=== PATIENT | female | born 1980 | race African-American/Black ===

== ENCOUNTER 2017-03-10 12:00 | Observation (INO) ==
[2017-03-10] MEDS ORDERED: METOPROLOL TARTRATE 5 MG/5 ML VIAL IV STA (12:38)
[2017-03-10 12:56] LABS: Basophils # 0.1 10*3/uL (0.0-0.2); Basophils % 1.1 % (0.0-0.8); Eosinophils # 0.1 10*3/uL (0.0-0.87); Eosinophils % 0.9 % (0.00-10.9); Hematocrit 39.5 VOL% (35.7-47.0); Hemoglobin 13.7 GM/DL (12.0-16.0); Immature Granulocytes % 0.4 %; Immature Granulocytes Absolute 0.03 #; Lymphocytes % 40.7 % (21.3-54.2); Mean Corpuscular HGB Conc 34.7 GM/DL (32-36); Mean Corpuscular Hemoglobin 28 PG (27-34); Mean Corpuscular Volume 79.6 FL (87-102); Mean Platelet Volume 10.5 FL (9.6-12.0); Monocytes # 0.6 10*3/uL (0.11-0.8); Neutrophils # 3.6 10*3/uL (1.4-7.4); Neutrophils % 48.9 % (38.7-73.9); Platelet Count 360 T/CUMM (130-400); Red Blood Count 4.96 MC/CUMM (3.8-5.5); Red Cell Distribution Width 13.4 % (9.3-17.3); White Blood Count 7.4 T/CUMM (4-12)
--- NOTE | 2017-03-10 13:03 | XRay Report ---
Exam: XR chest 1V portable Date: 03/10/2017 12:37 PM Indication: Atrial fibrillation Comparison: None Technical: AP Findings: External cardiac leads are present. The heart, lungs, mediastinum bony structures are intact . Oxygen tubing superimposes exam. Impression: 1. No acute cardiopulmonary pathology radiographically PROCEDURE INTERPRETED AT [facility] DEPARTMENT OF RADIOLOGY Final Report Signed by: Dr. Feliz Su
--- NOTE | 2017-03-10 13:03 | Emergency Department Note ---
Rosalio Najera Manpreet, am scribing for, and in the presence of, Nava Page DO 12: 41. ICamilo Debra, DO, personally performed the services described in this documentation, ascribed by Albert Santamaria in my presence, and it is both accurate and complete . Arrival - Arrival Chief Complaint: Arrhythmia/Palpitations Stated Complaint: chest palpations, sob ED Nursing Triage Note: pt ambulatory to triage with c/o having palpitations/ fluttering in chest and sob onset yesterday pt denies any cp.. states fluttering and sob comes and goes. denies any n/v or dizziness. Mode of Arrival: Ambulatory Limitations: No Limitations Source: Patient Time Seen by Provider: 03/10/17 12:34 - History of Present Illness HPI Narrative: Pt is a 36 y/o female, with PMHx of HTN, who presents to the ED after having chest palpations and SOB that began yesterday but got worse today. Pt states the fluttering and SOB are intermittent. Pt denies any N/V/D, dizziness, fever, chills, or CP, but c/o nausea. Pt has had similar episodes of palpations with SOB but has not seen a survey director or her PCP. Dr. Groves is the pt's PCP. Pt states she is complaint with her HTN medications. No other pains/complaints reported to the ED. Onset (ago): day(s) (yesterday) Consistency: intermittent Severity: mild, moderate Allergies/Adverse Reactions: Allergies Allergy/AdvReac Type Severity Reaction Status Date / Time No Known Allergies Allergy Unverified 03/10/17 12:14 Review of System - Review of System 12 point system: reviewed and no additional remarkable complaints except as stated - Review of System Constitutional: Absent: chills, diaphoresis, fever Head/Ears/Nose/Throat: Absent: sore throat Respiratory: Present: respiratory distress. Absent: cough, wheezing Cardiovascular: Present: palpitations. Absent: chest pain, dyspnea on exertion Gastrointestinal: Present: nausea. Absent: abdominal pain, vomiting, diarrhea Musculoskeletal: Absent: arm pain, back pain Neurological: Absent: headache, numbness, paresthesias Medical,Surgical,& Family Hx - Medical History Cardio: History of: Hypertension - Social History Smoking Status: Never smoker Frequency of Alcohol Use: None Type of Drug Use: None Exam Vital Signs: Vital Signs Temperature 98.0 F 03/10/17 12:29 Pulse Rate 100 H 03/10/17 12:29 Respiratory Rate 18 03/10/17 12:36 Blood Pressure 120/95 03/10/17 12:29 O2 Sat by Pulse Oximetry 100 03/10/17 12:10 - General General appearance: alert, in no apparent distress - Head Head exam: Present: atraumatic, normocephalic, normal inspection - Eye Eye exam: Present: normal appearance, PERRL, EOMI - ENT ENT exam: Present: normal exam, normal oropharynx, mucous membranes moist, TM's normal bilaterally - Neck Neck exam: Present: normal inspection, full ROM, trachea midline. Absent: tenderness - Chest Chest inspection: Present: normal inspection, symmetric chest wall rise. Absent : tenderness - Respiratory Respiratory exam: Present: normal lung sounds bilaterally. Absent: accessory muscle use, respiratory distress - Cardiovascular Cardiovascular exam: Present: tachycardia, irregular rhythm, normal heart sounds - Abdominal Exam Abdominal exam: Present: soft, normal bowel sounds. Absent: distention, tenderness, guarding - Extremities Exam Extremities exam: Present: normal inspection, full ROM. Absent: tenderness - Back Exam Back exam: Present: normal inspection, full ROM. Absent: tenderness - Neurological Exam Neurological exam: Present: alert, oriented X3, CN II-XII intact, reflexes normal - Psychiatric Psychiatric exam: Present: normal affect, normal mood - Skin Skin exam: Present: warm, dry, intact, normal color. Absent: pallor Course Course Narrative: Spoke with Dr. Mays who came in to see the patient. He will admit the patient overnight for observation. Results - Labs CBC & BMP: 03/10/17 12:46 03/10/17 12:46 Lab Results: I have reviewed the patients labs Labs: Laboratory Tests 03/10/17 12:46 WBC 7.4 RBC 4.96 Hgb 13.7 Hct 39.5 MCV 79.6 L MCH 28 MCHC 34.7 RDW 13.4 Plt Count 360 MPV 10.5 Neut % (Auto) 48.9 Lymph % (Auto) 40.7 Eddy % (Auto) 8.0 Eos % (Auto) 0.9 Baso % (Auto) 1.1 H Neut # (Auto) 3.6 Lymph # (Auto) 3.0 [place] # (Auto) 0.6 Eos # (Auto) 0.1 Baso # (Auto) 0.1 Immature Gran % 0.4 Nucleated RBC % 0.0 Immature Gran # 0.03 Nucleated RBCs # 0.00 Immature Plt Fraction 0.0 Laboratory Tests 03/10/17 12:46 INR 1.1 PT Patient/Control Mix 11.3 Circ Anticoag PTT 28.0 - EKG EKG results: interpreted by ERMD EKG shows: atrial fibrillation - Diagnostic Findings Procedure: Chest x-ray: report reviewed by me ("Chest X-ray: 1. No acute cardiopulmonary pathology radiographically.") Disposition Clinical Impression: Atrial fibrillation Case discussed with: patient Disposition: Still a Patient Condition: Stable Time of Disposition: 13:30
[2017-03-10] MEDS ORDERED: METOPROLOL TARTRATE 5 MG/5 ML VIAL IV ONE (13:10)
[2017-03-10 13:19] LABS: INR 1.1; PT Patient Result 11.3 SECS
[2017-03-10 13:29] LABS: Alanine Aminotransferase 41 U/L (13-56); Albumin 4.2 G/DL (3.4-5.0); Alkaline Phosphatase 188 U/L (45-117); Aspartate Amino Transferase 29 U/L (0-37); Blood Urea Nitrogen 9 MG/DL (7-18); Calcium 9.1 MG/DL (8.5-10.1); Glucose 104 MG/DL (74-106); Osmolality,Calculated 277.4 MOS/KG (273-304); Potassium 3.8 MMOL/L (3.5-5.1); Sodium 140 MMOL/L (136-145); Total Protein 7.7 G/DL (6.4-8.3); Troponin I Only < 0.015 NG/ML (0.00-0.045)
[2017-03-10 13:31] LABS: Apearance,Urine CLEAR (Clear); Bacteria,Urine Occasional /HPF (Few); Bilirubin,Urine Negative (Negative); Blood, Urine Negative (Negative); Glucose,Urine (UA) Negative (Negative); Ketones,Urine Negative (Negative); Mucus,Urine Many /LPF (Occasional); Nitrite,Urine Negative (Negative); Protein,Urine Negative; RBC,Urine <1 /HPF (0-4); Squamous Epithelial Cell,Urine Occasional /HPF (0-10); Urine Color Yellow (Yellow); Urine Specific Gravity 1.013 (1.001-1.035); Urine Urobilinogen < 2.0 EU/DL (0.2-1.0); WBC,Urine 2 /HPF (0-6)
[2017-03-10] MEDS ORDERED: ZALEPLON 5 MG CAPSULE PO PRN (13:37)
[2017-03-10] MEDS ORDERED: hydrALAZINE 20 MG/1 ML VIAL IV PRN (13:44)
[2017-03-10] MEDS ORDERED: METOPROLOL SUCCINATE XL 25 MG TABLET PO ONE (13:45)
--- NOTE | 2017-03-10 13:49 | Cardiology History & Physical ---
Assessment and Plan - Time spent with patient Time spent with patient: Less than 30 minutes (1) Hypertension Status: Chronic Current Visit: Yes Qualifiers: Hypertension type: essential hypertension Qualified Code(s): I10 - Essential (primary) hypertension (2) Dyspnea Status: Acute Current Visit: Yes Qualifiers: Dyspnea type: other forms of dyspnea Qualified Code(s): R06.09 - Other forms of dyspnea (3) New onset atrial fibrillation Status: Acute Assessment and plan: She has a CHADS score of 1. I will initiate work up. She must have DVT/PE ruled out. See orders. Consider GRISELDA and confucianism of NSR soon if heart is structurally normal. Several test still pending at this time. Current Visit: Yes History of Present Illness Chief complaint: Shortness of breath and palpitations History of present illness: Ms. Camargo is a 36 year old female who takes estrogen replacement therapy and has a history of hypertension who presents with 3 weeks of progressive shortness of breath even to the point of having tachypnea and dyspnea at rest while speaking complete sentences. 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 She states that she can even take a shower without getting very short of breath. She has not had a history of coronary artery disease or other heart problems she has never had heart failure. Her primary care physician is Dr. Groves and only chronic medical problems hypertension for which she takes amlodipine. The patient today was having progressive palpitations she states that she felt worse yesterday than she has in the last 3 weeks but today she reveals worse and was tachypneic and having palpitations while tying trying to shower this morning she is accompanied by her to the emergency room. She resides in the [facility]. She is a lifelong resident of [facility]. She does not smoke and denies recreational drugs. She has no history of miscarriage no family history of premature from atherosclerotic coronary artery disease and no family history of hypercoagulable problems that she is aware of. She is the mother of 2 children she had a hysterectomy. Her Home Medications are: 1. Amlodipine daily 2. Estrace daily No aspirin or other anticoagulants. She denies any stimulants laxatives or other medications such as diuretics. No weight loss products. Allergies Allergy/AdvReac Type Severity Reaction Status Date / Time No Known Allergies Allergy Unverified 03/10/17 12:14 - Constitutional Constitutional: Absent: anorexia, chills Medical,Surgical,& Family Hx - Medical History Cardio: History of: Hypertension - Surgical History HEENT Surgeries: Surgical HX of: Tonsilectomy & Adenoidectomy Reproductive Surgeries: Surgical HX of;: Hysterectomy - Family History Family History: noncontributory - Social History Smoking Status: Never smoker Frequency of Alcohol Use: None Type of Drug Use: None Marital Status: Lives With:: Spouse Functional capacity: independent ambulation Cardiology Physical Exam - Constitutional Vitals: Vital Signs Temp Pulse Resp BP Pulse Ox 98.0 F 100 H 18 120/95 100 03/10/17 12:29 03/10/17 12:29 03/10/17 12:36 03/10/17 12:29 03/10/17 12:10 Intake and Output 03/09/17 03/10/17 03/10/17 23:59 07:59 15:59 Other: Weight 77.111 kg Patient Weight 03/10/17 23:59 Weight 77.111 kg General appearance: normal weight - Head Head exam: Present: normal inspection - Eye Eye exam: Present: EOMI Pupils: Present: SUDHA - ENT ENT exam: Present: normal exam - Neck Neck exam: Present: normal inspection - Respiratory Respiratory exam: Present: clear to auscultation bilaterally - Cardiovascular Cardiovascular exam: Present: irregular rhythm - GI/Abdominal GI/Abdominal exam: Present: normal bowel sounds - Extremities Exam Extremities exam: Present: normal inspection - Back Exam Back exam: Present: normal inspection - Neurological Exam Neurological exam: Present: alert, oriented X3 - Psychiatric Psychiatric exam: Present: normal affect - Skin Skin exam: Present: normal color, warm Result/EKG - Labs CBC & BMP: 03/10/17 12:46 03/10/17 12:46 Labs: Laboratory Results - last 24 hr 03/10/17 03/10/17 03/10/17 12:46 12:46 12:46 WBC 7.4 RBC 4.96 Hgb 13.7 Hct 39.5 MCV 79.6 L MCH 28 MCHC 34.7 RDW 13.4 Plt Count 360 MPV 10.5 Neut % (Auto) 48.9 Lymph % (Auto) 40.7 [place] % (Auto) 8.0 Eos % (Auto) 0.9 Baso % (Auto) 1.1 H Neut # (Auto) 3.6 Lymph # (Auto) 3.0 [place] # (Auto) 0.6 Eos # (Auto) 0.1 Baso # (Auto) 0.1 Immature Gran % 0.4 Nucleated RBC % 0.0 Immature Gran # 0.03 Nucleated RBCs # 0.00 Immature Plt Fraction 0.0 INR 1.1 PT Patient/Control Mix 11.3 Circ Anticoag PTT 28.0 Sodium Potassium Chloride Carbon Dioxide Anion Gap BUN Creatinine GFR Calculation BUN/Creatinine Ratio Glucose Calculated Osmolality Calcium Total Bilirubin AST ALT Alkaline Phosphatase Total Creatine Kinase CK-MB (CK-2) Troponin I Total Protein Albumin Globulin Albumin/Globulin Ratio TSH 3rd Generation Urine Color Yellow Urine Appearance Clear Urine pH 6.0 Ur Specific [place] 1.013 Urine Protein Negative Urine Glucose (UA) Negative Urine Ketones Negative Urine Blood Negative Urine Nitrate Negative Urine Bilirubin Negative Urine Urobilinogen < 2.0 H Urine Leukocytes Negative Urine RBC <1 Urine WBC 2 Ur Squamous Epith Cells Occasional Urine Bacteria Occasional Urine Mucus Many Ur Culture Indicated? Not indicated 03/10/17 12:46 WBC RBC Hgb Hct MCV MCH MCHC RDW Plt Count MPV Neut % (Auto) Lymph % (Auto) [place] % (Auto) Eos % (Auto) Baso % (Auto) Neut # (Auto) Lymph # (Auto) [place] # (Auto) Eos # (Auto) Baso # (Auto) Immature Gran % Nucleated RBC % Immature Gran # Nucleated RBCs # Immature Plt Fraction INR PT Patient/Control Mix Circ Anticoag PTT Sodium 140 Potassium 3.8 Chloride 105 Carbon Dioxide 28 Anion Gap 10.8 BUN 9 Creatinine 0.70 GFR Calculation 143 BUN/Creatinine Ratio 12.00 Glucose 104 Calculated Osmolality 277.4 Calcium 9.1 Total Bilirubin 0.40 AST 29 ALT 41 Alkaline Phosphatase 188 H Total Creatine Kinase 255 H CK-MB (CK-2) 1.1 Troponin I < 0.015 Total Protein 7.7 Albumin 4.2 Globulin 3.5 Albumin/Globulin Ratio 1.2 TSH 3rd Generation 1.410 Urine Color Urine Appearance Urine pH Ur Specific [place] Urine Protein Urine Glucose (UA) Urine Ketones Urine Blood Urine Nitrate Urine Bilirubin Urine Urobilinogen Urine Leukocytes Urine RBC Urine WBC Ur Squamous Epith Cells Urine Bacteria Urine Mucus Ur Culture Indicated? - EKG EKG results: interpreted by me EKG shows: atrial fibrillation Quality Measures - VTE Contraindication to Pharmacological VTE Prophylaxis: Already on Theraputic Agent , No Prophylaxis Needed Contraindication to Mechanical VTE Prophylaxis: Current Diagnosis of DVT
--- NOTE | 2017-03-10 14:14 | Ultrasound Report ---
Exam: US venous doppler LE BI Indication: Shortness of breath atrial fibrillation Date: 03/10/2017 1:37 PM Findings: Grayscale color flow duplex/Doppler imaging and spectral analysis waveform imaging was performed with real-time ultrasound with image stored and captured. The right common femoral, superficial femoral, popliteal saphenous veins are patent with normal augmentation and compression. There is no evidence of popliteal or Camejo's cyst. Normal wave form analysis present. Normal color flow The left common femoral, superficial femoral, popliteal saphenous veins are patent with normal augmentation and compression. There is no evidence of popliteal or Camejo's cyst. Normal wave form analysis present. Normal color flow Impression: 1. No DVT PROCEDURE INTERPRETED AT [facility] DEPARTMENT OF RADIOLOGY Final Report Signed by: Dr. Feliz Su
[2017-03-10 14:34] LABS: Barbiturates Screen,Urine Negative (Negative); Benzodiazepines Screen,Urine Negative (Negative); Cannabinoid Screen,Urine Negative (Negative); Opiate Screen,Urine Negative (Negative); Phencyclidine Screen,Urine Negative (Negative)
[2017-03-10] MEDS: APIXABAN 5 MG TABLET PO SCH ×2 (16:48→20:57)
--- NOTE | 2017-03-10 23:08 | ECHO Report ---
Lilo Camargo Exam Date: 03/10/2017 15:50 Referring Physician: Technologist: Jerri Diez RDCS Age: 36 Ht (in): 68 Wt (lb): 170 Gender: F Exam Location: [facility] Echo Indications: Essential (primary) hypertension, Dyspnea, unspecified, Palpitations, Atrial fibrillation BP: 120 / 95 HR: 88 Rhythm: Atrial fibrillation Technical Quality: good IMPRESSIONS Left ventricular ejection fraction is estimated at 55 %. Diastolic parameters are equivocal - Atrial fibrillation There is no regional wall motion abnormality per. Tricuspid regurgitation velocities suggest a RVSP of 26 mmHg plus the right atrial pressure. MEASUREMENTS (Male / Female) Normal Values 2D ECHO LV Diastolic Diameter PLAX 4.0 cm 4.2 - 5.9 / 3.9 - 5.3 cm LV Systolic Diameter PLAX 2.9 cm LV Fractional Shortening PLAX 27.4 % IVS Diastolic Thickness 0.8 cm 0.6 - 1.0 / 0.6 - 0.9 cm LVPW Diastolic Thickness 0.8 cm 0.6 - 1.0 / 0.6 - 0.9 cm RV Internal Dim ED PLAX 2.8 cm Aortic Root Diameter 2.9 cm LA Systolic Diameter LX 3.0 cm 3.0 - 4.0 / 2.7 - 3.8 cm DOPPLER TR Peak Velocity 255.0 cm/s TR Peak Gradient 26.0 mmHg FINDINGS Left Ventricle Normal left ventricular cavity size. Normal left ventricular wall thickness. Left ventricular ejection fraction is estimated at 55 %. Diastolic parameters are equivocal. There is no regional wall motion abnormality per Right Ventricle The right ventricle is normal in size and function. Right Atrium The right atrium is normal in size. Left Atrium The left atrium is normal in size. Mitral Valve Morphologically normal mitral valve. Trace mitral valve regurgitation. Aortic Valve Morphologically normal aortic valve without significant sclerosis or stenosis. There is no aortic regurgitation. Tricuspid Valve Morphologically normal tricuspid valve. Trace to mild tricuspid valve regurgitation. Tricuspid regurgitation velocities suggest a RVSP of 26 mmHg plus the right atrial pressure. Pulmonic Valve Morphologically normal pulmonic valve. Mild pulmonary valve regurgitation. Pericardium Normal pericardium without effusion. Aorta Normal ascending aorta dimension. Jacqueline Sam (Electronically Signed) Final Date: 10 March 2017 23:07
[2017-03-11 05:22] LABS: Basophils # 0.1 10*3/uL (0.0-0.2); Basophils % 1.2 % (0.0-0.8); Eosinophils # 0.1 10*3/uL (0.0-0.87); Eosinophils % 1.6 % (0.00-10.9); Hematocrit 38.9 VOL% (35.7-47.0); Hemoglobin 13.4 GM/DL (12.0-16.0); Immature Granulocytes % 0.4 %; Immature Granulocytes Absolute 0.03 #; Lymphocytes # 3.3 10*3/uL (1.4-4.0); Lymphocytes % 43.4 % (21.3-54.2); Mean Corpuscular HGB Conc 34.4 GM/DL (32-36); Mean Corpuscular Hemoglobin 28 PG (27-34); Mean Platelet Volume 10.7 FL (9.6-12.0); Monocytes # 0.7 10*3/uL (0.11-0.8); Monocytes % 9.4 % (1.7-12.7); Neutrophils # 3.3 10*3/uL (1.4-7.4); Platelet Count 349 T/CUMM (130-400); Red Cell Distribution Width 13.7 % (9.3-17.3); White Blood Count 7.6 T/CUMM (4-12)
--- NOTE | 2017-03-11 05:53 | EKG Report ---
Stationary ECG Study [facility] ER Test Date: 03/10/2017 12:07:08 PM Pat Name: ELOISE ASH Department: Room: 273 Gender: F Admissions Coordinator: : 1980 Requested by: Davey Whitaker Order Number: [id number] Reading MD: SANDRA GUADALUPE Intervals [place] Rate: 101 P: 999 FL: 0 QRS: 74 QRSD: 77 T: -12 QT: 350 QTc: 408 Interpretive Statements ATRIAL FIBRILLATION WITH RAPID VENTRICULAR RESPONSE LOW QRS VOLTAGE IN LIMB LEADS NONSPECIFIC T WAVE ABNORMALITY Electronically Signed On 03-11-17 11:42:20 CDT by SANDRA GUADALUPE [email or web address]
[2017-03-11 05:59] LABS: Calcium 9.1 MG/DL (8.5-10.1); Osmolality,Calculated 278.3 MOS/KG (273-304); Potassium 4.5 MMOL/L (3.5-5.1); Risk Ratio 3.33; VLDL CHOLESTEROL 37.8 MG/DL
--- NOTE | 2017-03-11 07:59 | EKG Report ---
Stationary ECG Study [facility] Test Date: 03/11/2017 7:59:15 AM Pat Name: ELOISE ASH Department: Room: 273 Gender: F Internal Control Manager: : 1980 Requested by: Davey Whitaker Order Number: [id number] Reading MD: BETTE LINK Intervals [place] Rate: 69 P: 50 [place]: 167 QRS: 51 QRSD: 77 T: 42 QT: 410 QTc: 429 Interpretive Statements SINUS RHYTHM NONSPECIFIC T-WAVE ABNORMALITY Electronically Signed On 03-11-17 13:44:19 CDT by BETTE LINK [email or web address]
[2017-03-11] MEDS ORDERED: METOPROLOL SUCCINATE XL 25 MG TABLET PO SCH (09:00)
[2017-03-11] MEDS ORDERED: PANTOPRAZOLE 40 MG TABLET PO SCH (09:00)
[2017-03-11] MEDS: APIXABAN 5 MG TABLET PO SCH (09:00)
--- NOTE | 2017-03-11 15:56 | Discharge Summary ---
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 Camargo is a 36 year old BF who takes estrogen replacement therapy and has a history of hypertension. She presented to the hospital with 3 weeks of progressive shortness of breath and was found to have new onset atrial fibrillation. Her CHADSVASC score is 1. She was given an injection of IV Lopressor in the emergency room and started on Toprol-XL 25 mg p.o. daily. Around 545 this morning, she converted to normal sinus rhythm and has maintained normal sinus rhythm throughout the day. Her labs and vital signs have been stable. She was started on Eliquis 5 mg p.o. twice daily for anticoagulation. She was ruled out for PE/DVT with D-dimer less than 0.5 and bilateral lower extremity venous Dopplers negative for DVT. At this time, she has met maximum benefit from hospitalization and will be discharged home in stable condition. She will follow-up with Dr. Sam in 1-2 weeks with EKG. - Time spent with patient Time with patient DS: Less than 30 minutes Diagnosis - Discharge Diagnosis (1) Dyspnea Status: Resolved (2) New onset atrial fibrillation Status: Resolved (3) Hypertension Status: Chronic Specialty Discharge - Follow Up or Referrals Follow up with: Jacqueline Sam DO [Physician] - 1 Month (Follow up with Dr. Sam in 3-4 weeks with CBC, BMP w/ Mg, and EKG. ) Discharge Plan - Discharge Data Disposition: Disch To Home/Self Care Condition at Discharge: Stable Discharge Diet: heart healthy Activity: resume usual activities as tolerated Hygiene: no restrictions Weight Bearing at Discharge: full weight bearing Driving: no restrictions Contact your physician if you experience:: fever over 101, Difficulty voiding, Redness or swelling, Nausea/Vomiting, Shortness of breath, Bleeding, pain uncontrolled by pain medications - Discharge Medications New Metoprolol Succinate Xl [Toprol Xl] 25 mg PO DAILY #30 tablet Apixaban [Eliquis] 5 mg PO BID #60 tablet Ascorbic Acid Tab [Vitamin C Tab] 1,000 mg PO BID #60 tablet Continue Estradiol [Estrace Tab] 0.5 mg PO DAILY Discontinued amLODIPine [Norvasc] 10 mg PO DAILY - Follow Up or Referral Follow Up: Jacqueline Sam DO [Physician] - 2 Weeks (Follow up with Dr. Sam in 1-2 weeks with EKG. ) - Forms/Instructions Additional Discharge Instructions: Notify your PCP or resident intern if symptoms return, persist, or worsen. Exam - Constitutional Vitals: Period Temp Pulse Resp BP Sys/Curry Pulse Ox Last 24 Hr 96.6 F-98 F 74-102 16-20 108-123/65-89 97-100 Exam: General: Present: Appears Well, No Apparent Distress. Pleasant and cooperative. HEENT: Present: PERRL, Normocephaly, atraumatic. Mucus Membranes Moist. No jaundice noted. Conjunctiva moist and clear. Neck: Present: Supple Neck, Midline Trachea, No Masses, No Bruit, No tenderness Cardiac: Present: Regular Rate and Rhythm, No Murmur Lungs: Present: clear to auscultation bilaterally, no wheezes, rhonchi, rales. Neuro: Present: Awake, alert, and oriented x3. Moves all extremities well without hemiparesis or paralysis. Grossly Intact. Absent: Resting Tremor, Essential Tremor Abdomen: Present: Soft, Active Bowel Sounds, No Masses, Non-Tender, nondistended. No abdominal bruit or thrill noted. Skin: Present: Clear. Absent: Rash, No skin breakdown. Back: Normal inspection, no vertebral tenderness. Musculoskeletal: Present: No Fluid Collection, No Pain, Normal Range of Motion Extremities: Present: Normal Gait, No Clubbing, No Cyanosis, Upper Extr. Pulses 2+, Lower Extr. Pulses 2+, No edema. Capillary refill less than 3 seconds. Discharge Results Labs on day of discharge: Labs from last 24 hours 03/11/17 03/11/17 04:07 04:07 WBC 7.6 RBC 4.80 Hgb 13.4 Hct 38.9 MCV 81.0 L MCH 28 MCHC 34.4 RDW 13.7 Plt Count 349 MPV 10.7 Neut % (Auto) 44.0 Lymph % (Auto) 43.4 [place] % (Auto) 9.4 Eos % (Auto) 1.6 Baso % (Auto) 1.2 H Neut # (Auto) 3.3 Lymph # (Auto) 3.3 [place] # (Auto) 0.7 Eos # (Auto) 0.1 Baso # (Auto) 0.1 Immature Gran % 0.4 Nucleated RBC % 0.0 Immature Gran # 0.03 Nucleated RBCs # 0.00 Immature Plt Fraction 0.0 Sodium 141 Potassium 4.5 Chloride 107 Carbon Dioxide 26 Anion Gap 12.5 BUN 11 Creatinine 0.70 GFR Calculation 146 BUN/Creatinine Ratio 15.00 Glucose 89 Calculated Osmolality 278.3 Calcium 9.1 Triglycerides 189 H Cholesterol 153 LDL Cholesterol 72.0 VLDL Cholesterol 37.8 HDL Cholesterol 46 Heart Disease Risk Ratio 3.33 DS: Provider Date of admission: 03/10/17 13:37 Primary care physician: . No PCP Attending physician on admission: Jacqueline Sam DO Discharging clinician: JENNY Franklin Expected date of discharge: 03/11/17
[2017-03-11 16:37] VITALS: BP 115/68
[2017-03-11] MEDS ORDERED: ASCORBIC ACID 500 MG TABLET PO SCH (21:00)
== END 2017-03-11 19:10 | disposition home or self-care (01) ==
LOC: N.EDINP 12:00 → N.ED 12:00 → N.TELES 15:27
PROVIDERS: ADMIT Internal Medicine Cardiovascular Disease; ATTEND Internal Medicine Cardiovascular Disease